=== PATIENT | male | born 1995 | race Caucasian/White ===

== ENCOUNTER 2023-04-15 21:47 | Emergency (ER) | payer OTHER ==
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
== END 2023-04-15 23:30 | disposition home or self-care (01) ==
LOC: EC 21:47
DX: Z00.00 Encounter for general adult medical examination without abnormal findings (principal)
CPT/HCPCS: 99283